=== PATIENT | male | born 1990 | race African-American/Black ===

== ENCOUNTER 2016-04-21 00:26 | Emergency (ER) | payer BC ==
[~2016-04-21] VITALS: Ht 182.9 cm; Wt 75.0 kg
[~2016-04-21 00:26] MED LIST: ATRITAB PO; LEVA500T PO
[2016-04-21 00:27] VITALS: BP 149/81; PULSE 72; RESP 18; TEMP 98.1; O2SAT 98
[2016-04-21] MEDS ORDERED: cefTRIAXone 250 MG VIAL IM ONE (01:15)
[2016-04-21] MEDS ORDERED: AZITHROMYCIN PWD FOR SUSP 1 GM PACKET PO ONE (01:15)
[2016-04-21] MEDS ORDERED: ATRITAB PO (01:22)
--- NOTE | 2016-04-21 01:45 | PD ---
HPI Chief Complaint: Complaint Time Seen by Provider: 01:41 Travel History International Travel<30 days: No Contact w/Intl Traveler<30days: No Traveled to known affect area: No History of Present Illness HPI 25-year-old HIV-positive black male presents to emergency Department with complaints of urethral discharge and dysuria. LOCATION: Urethra QUALITY: Burning SEVERITY: Moderate to severe TIMING: Constant DURATION: One week CONTACTS: Unprotected oral intercourse MODIFYING FACTORS: Urinating and ejaculated ASSOCIATED TIME AND SYMPTOMS: Symptoms associated with recent oral intercourse with a known individual. He did not use a condom. PFSH Past Medical History Narrative Medical HIV positive, viral load undetectable, CD4 unknown Diminished Hearing: No Immune Disorder: Yes (hiv) Tetanus Vaccination: < 5 Years Influenza Vaccination: No Past Surgical History Tonsillectomy: Yes Social History Alcohol Use: No Tobacco Use: No Substance Use: No Allergies-Medications (Allergen,Severity, Reaction): Coded Allergies: Bee Sting (Verified Allergy, Intermediate, 04/21/16) Reported Meds & Prescriptions Reported Meds & Active Scripts Active Reported Atripla (Bgdiyerjt-Odeepdiwjelao-Bdbiszkqh) 600-200-300 Mg Tab 1 Tab PO HS Take on an empty stomach. Review of Systems Except as stated in HPI: all other systems reviewed are Neg Physical Exam Narrative GENERAL: This is a well-nourished, well-developed patient, in no apparent distress. SKIN: No rashes, ecchymoses or lesions. Warm and dry. HEAD: Atraumatic. Normocephalic. EYES: PERRL, EOMI, no discharge or injection. No scleral icterus. EARS: Clear NOSE: Nasal turbinates appear normal. THROAT: Mucosa pink and moist. Airway patent. NECK: Trachea midline. supple, moves head freely. LUNGS: Clear to auscultation. CV: Regular in rhythm. ABDOMEN: Soft nontender. EXT: No clubbing cyanosis or edema. GENITOURINARY: Circumcised. Testes descended bilaterally without evidence of rotation. No lesions or erythema. Positive thick beige urethral discharge. Data Data Last Documented VS Vital Signs Date Time Temp Pulse Resp B/P Pulse Ox O2 Delivery O2 Flow Rate FiO2 04/21/16 01:22 14 04/21/16 00:27 98.1 72 149/81 98 Orders Gc And Chlamydia Pcr (04/21/16 01:01) Ceftriaxone Inj (Rocephin Inj) (04/21/16 01:15) Azithromycin Powd Pack (Zithromax Powd P (04/21/16 01:15) MDM Medical Decision Making Medical Screen Exam Complete: Yes Emergency Medical Condition: Yes Medical Record Reviewed: Yes Differential Diagnosis MDM: Moderate Differential diagnoses: Chlamydia, gonorrhea, syphilis, chancroid, hepatitis, HIV, herpes Narrative Course Patient is given Rocephin 250 and Zithromax 1 g by mouth. Patient has symptoms consistent with gonorrhea. This is urethritis, most likely gonorrhea Diagnosis Primary Impression: Urethritis, gonococcal, acute Patient Instructions: General Instructions Additional Instructions: Rest. Partner notification. Follow-up with the [facility] Department for further STD testing such as HIV, syphilis and hepatitis. No intercourse until all partners treated. Always use a condom. Return to the ER if any problems. Med/Other Pt SpecificInfo: No Meds Exist/No RX given Disposition: DISCHARGE HOME Condition: Stable Nemesio Ventura Apr 21, 2016 01:45
[2016-04-21 03:39] LABS: CHLAMYDIA PCR NOT DETECTED (NOT DETECT); NEISSERIA PCR DETECTED (NOT DETECT)
== END 2016-04-21 01:55 | disposition home or self-care (01) ==
LOC: NEPB 00:26
DX: A54.01 Gonococcal cystitis and urethritis, unspecified (principal); B20 Human immunodeficiency virus [HIV] disease
CPT/HCPCS: 87491; 87591; 96372; 99283; J0696

== ENCOUNTER 2016-07-19 13:25 | Emergency (ER) | payer BC ==
[~2016-07-19] VITALS: Ht 182.9 cm; Wt 75.0 kg
[~2016-07-19 13:25] MED LIST changes: -LEVA500T PO
[2016-07-19 13:26] VITALS: BP 141/78; PULSE 98; RESP 17; TEMP 97.9; O2SAT 99
[2016-07-19] MEDS ORDERED: PRED20 PO (14:09)
[2016-07-19] MEDS ORDERED: diphenhydrAMINE HCL 50 MG CAP PO ONE (14:15)
[2016-07-19] MEDS ORDERED: predniSONE 20 MG TAB PO ONE (14:15)
--- NOTE | 2016-07-19 14:36 | PD ---
HPI Chief Complaint: Allergic/Adverse Reaction Time Seen by Provider: 13:53 Travel History International Travel<30 days: No Contact w/Intl Traveler<30days: No Traveled to known affect area: No History of Present Illness HPI This patient complains of rash. He woke up this morning with diffuse head to toe rash. Minimal itching. No fever. He does have HIV and is on antivirals. He is currently taking amoxicillin for a boil behind his neck. Symptoms severity is mild PFSH Past Medical History Diminished Hearing: No Immune Disorder: Yes (hiv) Past Surgical History Tonsillectomy: Yes Social History Alcohol Use: No Tobacco Use: No Substance Use: No Allergies-Medications (Allergen,Severity, Reaction): Coded Allergies: Bee Sting (Verified Allergy, Intermediate, 04/21/16) Amoxicillin (Verified Allergy, Unknown, 07/19/16) Reported Meds & Prescriptions Reported Meds & Active Scripts Active Prednisone 20 Mg Tab 40 Mg PO DAILY Take 40 mg (2 tablets) daily for 5 days Reported Atripla (Wxeyxednu-Adzrwjexfkwxp-Bnkjwtvzw) 600-200-300 Mg Tab 1 Tab PO HS Take on an empty stomach. Review of Systems General / Constitutional: No: Fever HENT: No: Headaches Cardiovascular: No: Chest Pain or Discomfort Respiratory: No: Cough Physical Exam Narrative RESPIRATORY: Respiratory effort unlabored, no retractions or use of accessory muscles. Breath sounds are clear and symmetric. Skin shows diffuse maculopapular rash from head to toe No involvement of mucous membranes CARDIOVASCULAR: Regular rate and rhythm without murmur. Extremities showed no edema or varicosities. GASTROINTESTINAL: Abdomen soft, non-tender, nondistended. Positive bowel sounds. No hepato-splenomegaly, or palpable masses. No guarding. Data Data Last Documented VS Vital Signs Date Time Temp Pulse Resp B/P Pulse Ox O2 Delivery O2 Flow Rate FiO2 07/19/16 13:57 80 18 99 Room Air 07/19/16 13:26 97.9 141/78 Orders Diphenhydramine (Benadryl) (07/19/16 14:15) Prednisone (Deltasone) (07/19/16 14:15) MDM Medical Decision Making Medical Screen Exam Complete: Yes Emergency Medical Condition: Yes Medical Record Reviewed: Yes Differential Diagnosis Allergic reaction, medication side effect, viral syndrome Narrative Course I have reviewed the patient's electronic medical record. Patient looks clinically well and minimally symptomatic I gave him a dose prednisone and Benadryl He will stop The amoxicillin and substitute Bactrim DS I wrote him 5 days of prednisone He should follow up primary care Diagnosis Primary Impression: Rash Additional Instructions: The patient was advised to follow up with their physician and return if they worsen. Stop amoxicillin use Benadryl every 6 hours as needed Med/Other Pt SpecificInfo: Prescription(s) given Scripts Prednisone 20 Mg Tab40 Mg PO DAILY #10 TAB Ref 0 Take 40 mg (2 tablets) daily for 5 days Prov:Regis Arzola MD 07/19/16 Disposition: 01 DISCHARGE HOME Condition: Stable Regis Arzola MD July 19, 2016 14:36
[2016-07-19] MEDS ORDERED: BACT800T5 PO (14:37)
[2016-07-19 14:55] VITALS: BP 135/83
== END 2016-07-19 14:56 | disposition home or self-care (01) ==
LOC: NEPD 13:25
DX: R21 Rash and other nonspecific skin eruption (principal)
CPT/HCPCS: 99283; J7512; Q0163

== ENCOUNTER 2017-05-20 22:25 | Emergency (ER) | payer BC ==
[~2017-05-20] VITALS: Ht 180.3 cm; Wt 67.0 kg
[~2017-05-20 22:25] MED LIST changes: +BACT800T5 PO; +PRED20 PO
[2017-05-20 22:39] VITALS: BP 121/62; PULSE 117; RESP 16; TEMP 100.7
--- NOTE | 2017-05-21 00:25 | PD ---
HPI Chief Complaint: Cold / Flu Symptoms Time Seen by Provider: 00:14 Travel History International Travel<30 days: No Contact w/Intl Traveler<30days: No Traveled to known affect area: No History of Present Illness HPI 26-year-old black male HIV positive presents emergency department with complaints of fever and chills and sore throat. He states that he has been sick now for over 2 weeks. It initially it started off with diarrhea. He was seen by his doctor and had stool specimen collected as well as a lipid panel. He has an appointment to see his doctor later this week. Patient states that he was told to take Metamucil and probiotics. The patient states that he has had persistent diarrhea, weakness, general malaise followed this week by sore throat with fever, chills. He has not taken anything today for his fever. He has had a decreased appetite and has decreased energy. He does not know what his CD4 or viral load is. He states that he has been compliant with his HIV medicines. He denies any history of opportunistic infection. [facility] Past Medical History Narrative Medical HIV positive Diminished Hearing: No Immune Disorder: Yes (hiv) Tetanus Vaccination: < 5 Years Influenza Vaccination: No Past Surgical History Surgical History: No Previous Surgery Tonsillectomy: Yes Social History Alcohol Use: No Tobacco Use: No Substance Use: No Allergies-Medications (Allergen,Severity, Reaction): Coded Allergies: bee venom protein (honey bee) (Unverified Allergy, Intermediate, 10/29/16) amoxicillin (Unverified Allergy, Unknown, 10/29/16) Reported Meds & Prescriptions Reported Meds & Active Scripts Active Bactrim DS (Sulfamethoxazole-Trimethoprim) 800-160 Mg Tab 1 Tab PO BID Prednisone 20 Mg Tab 40 Mg PO DAILY Take 40 mg (2 tablets) daily for 5 days Reported Atripla (Zreadmfot-Bedeyvqlhmyqu-Fxqgwsgsc) 600-200-300 Mg Tab 1 Tab PO HS Take on an empty stomach. Review of Systems Except as stated in HPI: all other systems reviewed are Neg Physical Exam Narrative GENERAL: Well-developed, well-nourished in no acute distress. Nontoxic appearing. HEAD: Normocephalic, atraumatic. EYES: Pupils equal round and reactive. Extraocular motions intact. No scleral icterus. No injection or drainage. ENT: TMs clear without erythema. The external auditory canals clear. Nose: clear . Posterior pharynx is erythematous with enlarged exudative tonsils. mucous membranes are moist. Uvula midline. Airway patent. Positive cervical adenopathy NECK: Trachea midline.Supple, nontender, moves head freely. No central bony tenderness or spasm. CARDIOVASCULAR: Regular tachycardic rate and rhythm without murmurs, gallops, or rubs. RESPIRATORY: Clear to auscultation. Breath sounds equal bilaterally. No wheezes , rales, or rhonchi. GASTROINTESTINAL: Abdomen soft, non-tender, nondistended. No hepato-splenomegaly , or palpable masses. No guarding. EXTREMITIES: No clubbing, cyanosis, or edema. No joint tenderness, effusion, or edema noted. BACK: Nontender without deformity or crepitance. No flank tenderness. Data Data Last Documented VS Vital Signs Date Time Temp Pulse Resp B/P (MAP) Pulse Ox O2 Delivery O2 Flow Rate FiO2 05/21/17 00:11 18 05/20/17 22:39 100.7 117 121/62 (81) Orders Orders Complete Blood Count With Diff (05/21/17 00:19) Comprehensive Metabolic Panel (05/21/17 00:19) Group A Rapid Strep Screen (05/21/17 00:19) Enteric Path (Stool) (05/21/17 00:19) Iv Access Insert/Monitor (05/21/17:19) Giardia Antigen (Stool) (05/21/17 00:19) Stool Ova And Parasite Screen (05/21/17 00:19) Sodium Chlor 0.9% 1000 Ml Inj (Ns 1000 M (05/21/17 00:30) Ibuprofen (Motrin) (05/21/17 00:30) Clindamycin 600 Mg/Ns Premix (Cleocin 60 (05/21/17 00:30) Strep Culture (Group A) (05/21/17 00:25) Ed Discharge Order (05/21/17 03:21) Labs Laboratory Tests Test 05/21/17 00:25 White Blood Count 5.1 TH/MM3 Red Blood Count 3.81 MIL/MM3 Hemoglobin 9.5 GM/DL Hematocrit 28.5 % Mean Corpuscular Volume 74.6 FL Mean Corpuscular Hemoglobin 25.0 PG Mean Corpuscular Hemoglobin Concent 33.5 % Red Cell Distribution Width 12.9 % Platelet Count 446 TH/MM3 Mean Platelet Volume 6.5 FL CBC Comment AUTO DIFF Differential Total Cells Counted 100 Neutrophils % (Manual) 67 % Band Neutrophils % 10 % Lymphocytes % 9 % Monocytes % 7 % Basophils % 1 % Neutrophils # (Manual) 4.2 TH/MM3 Metamyelocytes 6 % Differential Comment FINAL DIFF MANUAL Toxic Granulation 1+ Toxic Vacuolation PRESENT Platelet Estimate HIGH Platelet Morphology Comment NORMAL Ovalocytes 1+ Acanthocytes OCC Keratocytes OCC Blood Urea Nitrogen 7 MG/DL Creatinine 0.88 MG/DL Random Glucose 107 MG/DL Total Protein 9.1 GM/DL Albumin 2.3 GM/DL Calcium Level 8.8 MG/DL Alkaline Phosphatase 76 U/L Aspartate Amino Transf (AST/SGOT) 44 U/L Alanine Aminotransferase (ALT/SGPT) 28 U/L Total Bilirubin 0.2 MG/DL Sodium Level 134 MEQ/L Potassium Level 3.5 MEQ/L Chloride Level 100 MEQ/L Carbon Dioxide Level 28.7 MEQ/L Anion Gap 5 MEQ/L Estimat Glomerular Filtration Rate 128 ML/MIN [facility] Medical Decision Making Medical Screen Exam Complete: Yes Emergency Medical Condition: Yes Medical Record Reviewed: Yes Interpretation(s) CBC & BMP Diagram 05/21/17 00:25 Total Protein 9.1 H, Albumin 2.3 L, Calcium Level 8.8, Alkaline Phosphatase 76, Aspartate Amino Transf (AST/SGOT) 44 H, Alanine Aminotransferase (ALT/SGPT) 28, Total Bilirubin 0.2 Rapid strep: Negative Differential Diagnosis Differential diagnosis: Strep throat, viral pharyngitis, mono, thrush, enteritis , colitis, infectious diarrhea, dehydration, electrolyte abnormality, opportunistic infection Narrative Course IV access is obtained. Patient was given a liter bolus of normal saline, Motrin 600 mg p.o., advised in 600 mg IV. Routine laboratory tests of analysis including CBC, chemistry and rapid strep. Stool for impacted enteric pathogens , ova and parasite as well as Giardia. Diagnosis Primary Impression: Acute pharyngitis Additional Impression: HIV positive Patient Instructions: General Instructions Departure Forms: School Release, Please excuse from school until (free text option): No school 2 days. Tests/Procedures Additional Instructions: Rest. Force fluids. Saltwater gargles. Tylenol and Advil. Chloraseptic Limon Cepastat lozenge. Clindamycin. Follow-up with a primary care doctor in 1-2. Return to the ER if any problems. Med/Other Pt SpecificInfo: Prescription(s) given Scripts Clindamycin (Cleocin) 150 Mg Cap 300 MG PO Q6H for Infection for 7 Days, #56 CAP 0 Refills Prov: Martin Austin MD 05/21/17 Disposition: 01 DISCHARGE HOME Condition: Stable Nemesio Ventura May 21, 2017 00:25
[2017-05-21] MEDS ORDERED: SODIUM CHLOR 0.9% 1000 ML INJ 1,000 ML IV ONE (00:30)
[2017-05-21] MEDS ORDERED: CLINDAMYCIN 600 MG/NS PREMIX 50 ML IV ONE (00:30)
[2017-05-21] MEDS ORDERED: IBUPROFEN 600 MG TAB PO ONE (00:30)
[2017-05-21 00:38] LABS: HEMATOCRIT 28.5 % (39.0-51.0); HEMOGLOBIN 9.5 GM/DL (13.0-17.0); MEAN CELL VOLUME 74.6 FL (80.0-100.0); MEAN CORPUSCULAR HGB CONC 33.5 % (32.0-36.0); MEAN PLATELET VOLUME 6.5 FL (7.0-11.0); PLATELET COUNT 446 TH/MM3 (150-450); RED BLOOD COUNT 3.81 MIL/MM3 (4.50-5.90); RED CELL DISTRIBUTION WIDTH 12.9 % (11.6-17.2); WHITE BLOOD COUNT 5.1 TH/MM3 (4.0-11.0)
[2017-05-21 00:52] LABS: ALBUMIN 2.3 GM/DL (3.4-5.0); ALT (GPT) 28 U/L (12-78); AST (GOT) 44 U/L (15-37); BICARBONATE 28.7 MEQ/L (21.0-32.0); BLOOD UREA NITROGEN 7 MG/DL (7-18); CALCIUM 8.8 MG/DL (8.5-10.1); CHLORIDE 100 MEQ/L (98-107); CREATININE 0.88 MG/DL (0.60-1.30); GLOMERULAR FILTRATION RATE 128 ML/MIN (>89); GLUCOSE,RANDOM 107 MG/DL (74-106); SODIUM (NA) 134 MEQ/L (136-145)
[2017-05-21 00:54] LABS: ALKALINE PHOSPHATASE 76 U/L (45-117); TOTAL BILIRUBIN ADULT 0.2 MG/DL (0.2-1.0); TOTAL PROTEIN 9.1 GM/DL (6.4-8.2)
[2017-05-21 01:18] LABS: BANDS 10 % (0-6); BASOPHILS 1 % (0-2); LYMPHOCYTES 9 % (9-44); METAMYELOCYTES 6 % (0-1); MONOCYTES 7 % (0-8); NEUTROPHIL # MANUAL DIFF 4.2 TH/MM3 (1.8-7.7); POLYS (SEG NEUTROPHILS) 67 % (16-70)
[2017-05-21 01:21] LABS: ACANTHOCYTES OCC (NORMAL); OVALOCYTES 1+ (NORMAL); TOXIC GRANULATION 1+ (NORMAL); TOXIC VACUOLATION PRESENT (NONE SEEN)
[2017-05-21 01:22] LABS: KERATOCYTES OCC (NORMAL)
[2017-05-21] MEDS ORDERED: CLIN150 PO (03:22)
== END 2017-05-21 03:55 | disposition home or self-care (01) ==
LOC: NEPD 22:25
DX: B20 Human immunodeficiency virus [HIV] disease (principal); J02.9 Acute pharyngitis, unspecified
CPT/HCPCS: 80053; 85007; 85027; 87081; 87880; 96365; 99284; J7030